=== PATIENT | female | born 1950 | race Caucasian/White ===

== ENCOUNTER → 2019-03-17 | Outpatient (CLI) | payer OTHER | LOC: EMCIMAGING 15:12 | PROVIDERS: ATTEND Internal Medicine | DX: J47.9 Bronchiectasis, uncomplicated (principal); R91.1 Solitary pulmonary nodule; R93.1 Abnormal findings on diagnostic imaging of heart and coronary circulation; I25.10 Atherosclerotic heart disease of native coronary artery without angina pectoris; E04.1 Nontoxic single thyroid nodule | CPT/HCPCS: 71250-PN ==

== ENCOUNTER → 2019-04-13 | Outpatient (CLI) | payer OTHER | LOC: EMCIMAGING 14:35 ==